=== PATIENT | female | born 1970 | race Caucasian/White ===

== ENCOUNTER → 2017-11-15 | Outpatient (CLI) | payer OTHER | END | disposition home or self-care (01) | LOC: CDC 09:33 | DX: Z01.810 Encounter for preprocedural cardiovascular examination (principal); R94.31 Abnormal electrocardiogram [ECG] [EKG] | CPT/HCPCS: 93000 ==

== ENCOUNTER → 2017-12-20 | Outpatient (CLI) | payer OTHER | END | disposition home or self-care (01) | LOC: CDC 08:52 | DX: Z01.810 Encounter for preprocedural cardiovascular examination (principal) | CPT/HCPCS: 93000 ==

== ENCOUNTER 2018-01-05 15:32 | Observation (INO) | payer OTHER ==
[~2018-01-05] VITALS: Ht 152.4 cm; Wt 69.8 kg
[2018-01-05 17:30] LABS: HEMATOCRIT 41.5 % (36.0-46.0); HEMOGLOBIN 14.5 G/DL (11.9-15.5); MCH 32.7 PG (29.0-34.0); MCHC 34.9 G/DL (30.0-36.0); PLATELET COUNT 288 K/uL (156-360); RBC DIS.WIDTH-CV 11.5 % (11.8-14.6); RBC DIS.WIDTH-SD 39.7 % (39-53); RED BLOOD COUNT 4.44 M/uL (3.80-5.20); WHITE BLOOD COUNT 7.6 K/uL (4.1-10.2)
[2018-01-05 17:35] LABS: MCV 93.5 FL (83-99)
[2018-01-05 17:39] LABS: CHLORIDE 108 mEq/L (99-109); POTASSIUM 3.7 mEq/L (3.7-5.4); SODIUM 140 mEq/L (136-147)
[2018-01-05 17:41] LABS: GLUCOSE 84 mg/dL (70-99)
[2018-01-05 17:44] LABS: CREATININE 0.7 mg/dL (0.6-1.3); GFR ESTIMATE (CALCULATED) > 59 mL/min/
[2018-01-05 17:45] LABS: UREA NITROGEN (BUN) 12 mg/dL (9-23)
[2018-01-05 17:55] LABS: TROP-I INTERPRETATION NEGATIVE; TROPONIN-I 0.02 ng/mL (0.0-0.30)
[2018-01-05] MEDS ORDERED: PERCOCET 5/31 TABLET PO (19:31)
[2018-01-05] MEDS ORDERED: AMLODIPINE BESY10 MG PO (19:31)
[2018-01-05] MEDS ORDERED: CYMBALTA60 MG PO (19:31)
[2018-01-05] MEDS ORDERED: HYDROCHLOROTH12.5 M3 PO (19:32)
[2018-01-05] MEDS ORDERED: IMITREX25 MG PO (19:32)
[2018-01-05] MEDS ORDERED: DESYREL 150 MG150 MG PO (19:32)
[2018-01-05] MEDS ORDERED: ATENOLOL100 MG PO (19:32)
[2018-01-05 21:02] LABS: APPEARANCE CLEAR ((CLEAR)); BILIRUBIN NEGATIVE; BLOOD NEGATIVE; COLOR STRAW ((YELLOW)); GLUCOSE (STRIP) NEGATIVE; KETONES NEGATIVE; LEUKOCYTES NEGATIVE; NITRITE NEGATIVE; PROTEIN (STRIP) NEGATIVE; SPECIFIC GRAVITY 1.005 (1.000-1.030); UROBILINOGEN 0.2 MG/DL (0.2-1.0)
[2018-01-05 22:00] VITALS: BP 165/88
[2018-01-06] VITALS: BP 152/80
[2018-01-06 05:02] VITALS: BP 139/81
[2018-01-06 07:19] VITALS: BP 135/82
[2018-01-06 11:23] VITALS: BP 150/97
[2018-01-06 19:45] VITALS: BP 135/88
[2018-01-07] VITALS: BP 108/58
[2018-01-07 04:30] VITALS: BP 102/54
[2018-01-07 07:32] VITALS: BP 100/57
[2018-01-07] MEDS ORDERED: HYGROTON25 MG PO (09:00)
[2018-01-07] MEDS ORDERED: CARVEDILOL25 MG PO (09:00)
[2018-01-07] MEDS ORDERED: PERCOCET 5/31 TABLET PO (09:01)
[2018-01-07 11:25] VITALS: BP 122/84
== END 2018-01-07 12:15 | disposition home or self-care (01) ==
LOC: EME 15:32 → EDOF 20:54 → 5WEST 20:54 → EDOF 20:54 → ENRESERV 20:55 → 5WEST 21:56
PROVIDERS: Physician Assistant
DX: I77.3 Arterial fibromuscular dysplasia (principal); I10 Essential (primary) hypertension; L40.50 Arthropathic psoriasis, unspecified; F32.9 Major depressive disorder, single episode, unspecified; Z79.891 Long term (current) use of opiate analgesic; F17.290 Nicotine dependence, other tobacco product, uncomplicated; Z82.49 Family history of ischemic heart disease and other diseases of the circulatory system; Z83.3 Family history of diabetes mellitus
CPT/HCPCS: 70450; 71046; 80048; 81003; 84484; 85027; 93005; 99281; 99285; G0378; J1650; J1885